=== PATIENT | male | born 1985 | race Caucasian/White ===

== ENCOUNTER 2018-03-22 09:23 | Inpatient (IN) | payer OTHER, SELFPAY ==
[2018-03-22 09:43] LABS: #Basophils 0.1 thou/uL (0.0-0.2); #Eosinphils 0.1 thou/uL (0.0-0.7); #Lymphocytes 1.5 thou/uL (1.20-3.40); #Monocytes 0.6 thou/uL (0.11-0.59); #Neutrophils 7.4 thou/uL (1.40-6.50); %Basophils 0.8 % (0.0-1.0); %Eosinophils 1.1 % (0.0-10.0); %Lymphocytes 15.8 % (21.0-51.0); %Monocytes 6.4 % (0.0-10.0); %Neutrophils 75.9 % (42.0-75.0); Hemoglobin 16.4 g/dL (14.0-18.0); Mean Corpuscular HGB CONC 33.8 g/dL (32.0-36.0); Mean Corpuscular Hemoglobin 31.9 pg (27.0-31.0); Mean Corpuscular Volume 94.6 fL (78.0-98.0); Mean Platelet Volume 8.3 fL (7.4-10.4); Platelet Count 257 thou/uL (130-400); RBC Distribution Width 10.9 % (11.5-14.5); Red Blood Cell (RBC) Count 5.13 mill/uL (4.70-6.10); White Blood Cell (WBC) Count 9.8 thou/uL (4.8-10.8)
[2018-03-22] MEDS ORDERED: Adacel (T-DAP) 0.5 ML VIAL ONE (09:44)
[2018-03-22] MEDS ORDERED: Fentanyl 100 MCG/2 ML VIAL ONE ×7 (09:44→18:22)
[2018-03-22 09:49] LABS: PTT 28.7 SEC (22.9-36.1); Prothrombin Time 12.7 SEC (12.0-14.7)
[2018-03-22] MEDS ORDERED: PROPOFOL 20 ML ONE (09:56)
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
[2018-03-22 10:00] LABS: ALT (SGPT) 82 U/L (8-55); AST (SGOT) 42 U/L (5-34); Albumin 4.4 g/dL (3.5-5.0); Alkaline Phosphatase 68 U/L (40-150); Anion Gap 14 mmol/L (10-20); BUN (Urea Nitrogen) 11 mg/dL (8.9-20.6); Bilirubin, Total 0.7 mg/dL (0.2-1.2); Calc. Creatinine Clearance 0 mL/min (70-130); Calcium 9.6 mg/dL (7.8-10.44); Carbon Dioxide 24 mmol/L (22-29); Chloride 106 mmol/L (98-107); Estimated GFR-MDRD 79; Glucose 125 mg/dL (70-105); Protein, Total 7.4 g/dL (6.0-8.3); Sodium 139 mmol/L (136-145)
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
[2018-03-22] MEDS ORDERED: Ondansetron HCl/PF 4 MG/2 ML Vial ONE (10:40)
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
[2018-03-22] MEDS ORDERED: HYDROmorphone 0.5 MG/0.5 ML SYRINGE ONE (13:10)
[2018-03-22] MEDS ORDERED: ISOVUE-370 76%-LOCM 1 ML ONE (13:33)
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
[2018-03-22] MEDS ORDERED: Midazolam HCl 2 mg/2 ml Vial ONE (15:24)
[2018-03-22] MEDS ORDERED: CEFAZOLIN/Water 2 GM/20 ML SYRINGE ONE (15:42)
[2018-03-22] MEDS ORDERED: Meperidine HCl/PF 25 MG/ML VIAL ONE (19:10)
[2018-03-22] MEDS ORDERED: Ondansetron HCl/PF 4 MG/2 ML Vial IVP PRN ×3 (19:31→20:02)
[2018-03-22] MEDS ORDERED: Promethazine HCl 25 MG/ML VIAL IM/IV PRN (19:31)
[2018-03-22] MEDS ORDERED: Ketorolac Tromethamine 30 MG/ML VIAL IM/IV PRN (19:31)
[2018-03-22] MEDS ORDERED: HYDROmorphone 2 MG/ML VIAL SLOW IVP PRN (19:31)
[2018-03-22] MEDS ORDERED: Non-Formulary Medication 1 EACH PO PRN (19:31)
[2018-03-22] MEDS ORDERED: Meperidine HCl/PF 25 MG/ML VIAL IV PRN (19:31)
--- NOTE | 2018-03-22 19:58 | RAD ---
THREE INTRAOPERATIVE IMAGES OF THE RIGHT HIP 03/22/18 HISTORY: Right hip surgery. FINDINGS: Previously noted fracture, dislocation of the right hip has been reduced and treated with three screw s overlying the femoral head. IMPRESSION: ORIF as above. POS: [facility]
[2018-03-22] MEDS ORDERED: Communication Order-Pharmacy FS SCH (20:02)
[2018-03-22] MEDS ORDERED: Zolpidem Tartrate 5 MG TAB PO PRN (20:02)
[2018-03-22] MEDS ORDERED: Dextrose 5% in Water 1,000 ML IV PRN (20:02)
[2018-03-22] MEDS ORDERED: Ondansetron ODT 4 MG TAB PO PRN (20:02)
[2018-03-22] MEDS ORDERED: Naloxone HCl 0.4 mg/ml Vial IV PRN (20:02)
[2018-03-22] MEDS ORDERED: Dextrose 50% Abboject 50 ML SYRINGE SLOW IVP PRN (20:02)
[2018-03-22] MEDS ORDERED: diphenhydrAMINE 50 MG/ML VIAL IVP PRN (20:02)
[2018-03-22] MEDS ORDERED: HYDROmorphone 10 mg/100 ml CADD IVPB PRN (20:02)
[2018-03-22] MEDS ORDERED: Promethazine HCl 25 MG/ML VIAL IM PRN (20:02)
[2018-03-22] MEDS ORDERED: diphenhydrAMINE 50 MG/ML VIAL IM PRN (20:02)
[2018-03-22] MEDS ORDERED: diphenhydrAMINE 25 MG CAP PO PRN (20:02)
[2018-03-22] MEDS ORDERED: cefTRIAXone\\ROCEPHIN 1 GM in Sodium Chloride 0.9% 100 ML IVPB SCH (21:00)
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
[2018-03-22] MEDS: Ketorolac Tromethamine 30 MG/ML VIAL IVP SCH (22:56)
[2018-03-22] MEDS: Sodium Chloride 0.9% 1,000 ML IV SCH (22:57)
[2018-03-22] MEDS: Famotidine 20 MG TAB PO SCH (22:57)
[2018-03-22] MEDS: Doxycycline 100 MG CAP PO SCH (22:57)
[2018-03-23 01:30] VITALS: BMI 32.5
[2018-03-23] MEDS: Ketorolac Tromethamine 30 MG/ML VIAL IVP SCH ×2 (03:14→09:29)
[2018-03-23 05:20] LABS: #Lymphocytes 1.7 thou/uL (1.20-3.40); #Monocytes 1.9 thou/uL (0.11-0.59); #Neutrophils 11.6 thou/uL (1.40-6.50); %Basophils 0.3 % (0.0-1.0); %Eosinophils 0.2 % (0.0-10.0); %Lymphocytes 10.8 % (21.0-51.0); %Monocytes 12.5 % (0.0-10.0); %Neutrophils 76.3 % (42.0-75.0); Hemoglobin 13.2 g/dL (14.0-18.0); Mean Corpuscular HGB CONC 33.8 g/dL (32.0-36.0); Mean Corpuscular Hemoglobin 31.7 pg (27.0-31.0); Mean Corpuscular Volume 93.8 fL (78.0-98.0); Mean Platelet Volume 8.3 fL (7.4-10.4); Platelet Count 255 thou/uL (130-400); RBC Distribution Width 10.9 % (11.5-14.5); Red Blood Cell (RBC) Count 4.15 mill/uL (4.70-6.10); White Blood Cell (WBC) Count 15.3 thou/uL (4.8-10.8)
[2018-03-23 05:26] LABS: Anion Gap 13 mmol/L (10-20); BUN (Urea Nitrogen) 7 mg/dL (8.9-20.6); Calc. Creatinine Clearance 176 mL/min (70-130); Calcium 8.2 mg/dL (7.8-10.44); Carbon Dioxide 24 mmol/L (22-29); Chloride 104 mmol/L (98-107); Estimated GFR-MDRD Greater than 90; Glucose 140 mg/dL (70-105); Potassium 3.7 mmol/L (3.5-5.1); Sodium 137 mmol/L (136-145)
[2018-03-23] MEDS: Sodium Chloride 0.9% 1,000 ML IV SCH ×2 (05:40→15:00)
[2018-03-23] MEDS: Doxycycline 100 MG CAP PO SCH ×2 (09:29→21:18)
[2018-03-23] MEDS: Famotidine 20 MG TAB PO SCH ×2 (09:29→21:43)
[2018-03-23 11:48] LABS: Bilirubin Negative (Negative); Blood, Urine Negative (Negative); Clarity CLEAR (Clear); Glucose, Urine (Dipstick) Negative (Negative); Leukocyte Trace (Negative); Nitrite Negative (Negative); Protein, Urine (Dipstick) Negative (Neg-Trace); Urobilinogen 0.2 mg/dL (0.2-1.0); pH, Urine 6.5 (5.0-9.0)
[2018-03-23 11:53] LABS: Bacteria/HPF None Seen HPF (None Seen); Hyaline Casts/LPF 0-3 HYALINE CAST LPF (0-3 Hyaline); Pathc Cast-AUWi Flag 0.29 (0-2.49); RBC/HPF 0-3 HPF (0-3); Squamous Epithelial 0-3 HPF (0-3)
[2018-03-23 12:12] LABS: Renal Epithelial None Seen HPF (0-3); Transitional Epithelial NONE SEEN HPF (0-3)
[2018-03-23] MEDS ORDERED: PROPOFOL 200 MG/20 ML VIAL ONE (13:27)
[2018-03-23] MEDS ORDERED: Ketorolac Tromethamine 30 MG/ML VIAL ONE (13:27)
[2018-03-23] MEDS ORDERED: Dexamethasone 20 MG/5 ML VIAL ONE (13:27)
[2018-03-23] MEDS ORDERED: Glycopyrrolate 0.2 MG/ML 5 ML SYRINGE ONE (13:27)
[2018-03-23] MEDS ORDERED: Lidocaine 1% PF 5 ML VIAL ONE (13:27)
[2018-03-23] MEDS ORDERED: Ondansetron HCl/PF 4 MG/2 ML Vial ONE (13:27)
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
[2018-03-23] MEDS: Ibuprofen 800 MG TAB PO SCH (16:10)
[2018-03-23] MEDS: Acetaminophen 500 MG TAB PO SCH ×2 (16:11→21:18)
[2018-03-23] MEDS: traMADol HCl 50 MG TAB PO PRN ×2 (18:47→21:19)
[2018-03-24] MEDS: Ibuprofen 800 MG TAB PO SCH ×3 (00:45→13:59)
[2018-03-24] MEDS: traMADol HCl 50 MG TAB PO PRN ×3 (03:21→21:12)
[2018-03-24] MEDS: Acetaminophen 500 MG TAB PO SCH ×4 (03:22→21:12)
[2018-03-24] MEDS: Doxycycline 100 MG CAP PO SCH ×2 (09:41→21:09)
[2018-03-24] MEDS: Famotidine 20 MG TAB PO SCH ×2 (09:42→21:09)
[2018-03-24] MEDS: Aspirin 81 mg Enteric Coated Tablet PO SCH ×2 (09:53→21:09)
[2018-03-24] MEDS: Senokot S 8.6-50 MG TAB PO SCH ×2 (09:53→21:09)
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
[2018-03-24] MEDS ORDERED: Polyethylene Glycol 3350 17 GM Packet PO SCH (16:19)
[2018-03-24] MEDS: Cyclobenzaprine 10 MG TAB PO PRN (18:02)
[2018-03-25] MEDS: Ibuprofen 800 MG TAB PO SCH ×4 (00:36→23:41)
[2018-03-25] MEDS: Acetaminophen 500 MG TAB PO SCH ×4 (03:25→21:15)
[2018-03-25] MEDS: traMADol HCl 50 MG TAB PO PRN ×4 (05:32→21:24)
[2018-03-25 05:58] LABS: #Basophils 0.1 thou/uL (0.0-0.2); #Eosinphils 0.2 thou/uL (0.0-0.7); #Lymphocytes 1.8 thou/uL (1.20-3.40); #Monocytes 0.8 thou/uL (0.11-0.59); #Neutrophils 6.3 thou/uL (1.40-6.50); %Basophils 0.6 % (0.0-1.0); %Eosinophils 2.2 % (0.0-10.0); %Lymphocytes 19.3 % (21.0-51.0); %Monocytes 9.1 % (0.0-10.0); %Neutrophils 68.8 % (42.0-75.0); Hemoglobin 11.1 g/dL (14.0-18.0); Mean Corpuscular HGB CONC 32.1 g/dL (32.0-36.0); Mean Corpuscular Volume 96.5 fL (78.0-98.0); Mean Platelet Volume 8.5 fL (7.4-10.4); Platelet Count 198 thou/uL (130-400); RBC Distribution Width 10.9 % (11.5-14.5); Red Blood Cell (RBC) Count 3.57 mill/uL (4.70-6.10); White Blood Cell (WBC) Count 9.1 thou/uL (4.8-10.8)
[2018-03-25] MEDS: Famotidine 20 MG TAB PO SCH ×2 (08:46→21:15)
[2018-03-25] MEDS: Doxycycline 100 MG CAP PO SCH ×2 (08:46→21:15)
[2018-03-25] MEDS: Polyethylene Glycol 3350 17 GM Packet PO SCH (08:46)
[2018-03-25] MEDS: Aspirin 81 mg Enteric Coated Tablet PO SCH ×2 (08:46→21:15)
[2018-03-25] MEDS: Senokot S 8.6-50 MG TAB PO SCH ×2 (08:47→21:15)
[2018-03-25] MEDS ORDERED: Polyethylene Glycol 3350 17 GM Packet PO SCH (09:00)
[2018-03-25] MEDS ORDERED: Bisacodyl 10 MG SUPP PR SCH ×2 (09:15→14:00)
[2018-03-25] MEDS: Cyclobenzaprine 10 MG TAB PO PRN (12:23)
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
[2018-03-26] MEDS: Acetaminophen 500 MG TAB PO SCH ×2 (04:14→08:42)
[2018-03-26] MEDS: traMADol HCl 50 MG TAB PO PRN ×2 (04:16→10:06)
[2018-03-26] MEDS ORDERED: Bisacodyl 10 MG SUPP PR PRN (07:15)
[2018-03-26 07:58] VITALS: BP 111/71; TEMP 98.4
[2018-03-26] MEDS: Ibuprofen 800 MG TAB PO SCH (08:42)
[2018-03-26] MEDS: Polyethylene Glycol 3350 17 GM Packet PO SCH (08:43)
[2018-03-26] MEDS: Doxycycline 100 MG CAP PO SCH (08:43)
[2018-03-26] MEDS: Famotidine 20 MG TAB PO SCH (08:43)
[2018-03-26] MEDS: Aspirin 81 mg Enteric Coated Tablet PO SCH (08:43)
[2018-03-26] MEDS: Senokot S 8.6-50 MG TAB PO SCH (08:43)
[2018-03-26] MEDS ORDERED: Bisacodyl 10 MG SUPP PR SCH (09:00)
[2018-03-26] MEDS: Cyclobenzaprine 10 MG TAB PO PRN (10:06)
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
== END 2018-03-26 14:20 | disposition home or self-care (01) | DRG 481 ==
LOC: ERS 09:23 → SURG B 19:18
PROVIDERS: ADMIT Surgery; ATTEND Surgery
PROC: 0QS604Z Reposition Right Upper Femur with Internal Fixation Device, Open Approach (ICD-10-PCS; principal; 2018-03-22)
PROC: 0SS904Z Reposition Right Hip Joint with Internal Fixation Device, Open Approach (ICD-10-PCS; 2018-03-22)
DX: S72.051A Unspecified fracture of head of right femur, initial encounter for closed fracture (principal); S06.0X9A Concussion with loss of consciousness of unspecified duration, initial encounter; Y92.9 Unspecified place or not applicable; F17.210 Nicotine dependence, cigarettes, uncomplicated; V89.2XXA Person injured in unspecified motor-vehicle accident, traffic, initial encounter; Y93.9 Activity, unspecified; R40.2412 Glasgow coma scale score 13-15, at arrival to emergency department
CPT/HCPCS: 36415; 36416; 71045; 72170; 74177; 76001; 80048; 80053; 81001; 85025; 85610; 85730; 86850; 86900; 86901; 87086; 90471; 90715; 96361; 96374; 96375; 99152; C1713; C1769; G0390; G8978-GP-CL; G8979-GP-CI; G8987-GO-CL; G8988-GO-CI; J0696; J1100; J1170; J1885; J2001; J2175; J2250; J2405; J2704; J3010; J7050; Q0162

== ENCOUNTER 2018-05-31 10:50 | Emergency (ER) | payer SELFPAY ==
--- NOTE | 2018-05-31 11:51 | RAD ---
2 VIEWS RIGHT HIP: Date: 05/31/18 COMPARISON: 03/22/18. HISTORY: Right hip pain. Patient had hip surgery on 03/22/18. Patient recently felt pain in the right hip and leg. FINDINGS: Two views of the right hip show three screws in the femoral head. This spans the previously seen frac ture. No dislocation is seen. No perihardware lucency is identified. IMPRESSION: Postoperative changes of the right femoral head without evidence of acute osseous abnormality. POS: [facility]
[2018-05-31] MEDS ORDERED: Ketorolac Tromethamine 60 MG/2 ML VIAL ONE (12:09)
== END 2018-05-31 12:21 | disposition home or self-care (01) ==
LOC: ERS 10:50
DX: M25.551 Pain in right hip (principal)
CPT/HCPCS: 96372; J1885

== ENCOUNTER 2018-06-08 10:20 | Inpatient (IN) | payer SELFPAY ==
--- NOTE | 2018-06-08 12:10 | RAD ---
2 VIEWS RIGHT HIP: Date: 06/08/18 COMPARISON: 05/31/18. HISTORY: Hip pain. FINDINGS: Three screws overlie the femoral head on the right, as seen on the prior examination. There is a new fracture at the base of the femoral head with impaction. The distal fracture fragment demonstrates mi ld lateral displacement and mild proximal displacement. Orthopedic consultation advised. IMPRESSION: New impacted and displaced basicervical fracture of the right femoral neck. POS: [facility]
[2018-06-08] MEDS ORDERED: Morphine 4 MG/ML VIAL ONE (12:28)
[2018-06-08] MEDS ORDERED: Ondansetron PF 4 MG/2 ML Vial ONE (12:28)
[2018-06-08 12:47] LABS: #Basophils 0.1 thou/uL (0.0-0.2); #Eosinphils 0.1 thou/uL (0.0-0.7); #Lymphocytes 1.8 thou/uL (1.20-3.40); #Monocytes 0.7 thou/uL (0.11-0.59); %Basophils 0.8 % (0.0-1.0); %Eosinophils 0.5 % (0.0-10.0); %Lymphocytes 18.6 % (21.0-51.0); %Monocytes 6.8 % (0.0-10.0); %Neutrophils 73.3 % (42.0-75.0); Hemoglobin 15.4 g/dL (14.0-18.0); Mean Corpuscular HGB CONC 33.6 g/dL (32.0-36.0); Mean Corpuscular Hemoglobin 31.1 pg (27.0-31.0); Mean Corpuscular Volume 92.7 fL (78.0-98.0); Mean Platelet Volume 7.5 fL (7.4-10.4); Platelet Count 369 thou/uL (130-400); RBC Distribution Width 11.1 % (11.5-14.5); Red Blood Cell (RBC) Count 4.94 mill/uL (4.70-6.10); White Blood Cell (WBC) Count 9.5 thou/uL (4.8-10.8)
[2018-06-08 13:07] LABS: ALT (SGPT) 31 U/L (8-55); AST (SGOT) 22 U/L (5-34); Albumin 4.9 g/dL (3.5-5.0); Alkaline Phosphatase 104 U/L (40-150); Anion Gap 14 mmol/L (10-20); BUN (Urea Nitrogen) 5 mg/dL (8.9-20.6); Bilirubin, Total 0.6 mg/dL (0.2-1.2); Calc. Creatinine Clearance 0 mL/min (70-130); Calcium 10.4 mg/dL (7.8-10.44); Carbon Dioxide 26 mmol/L (22-29); Chloride 102 mmol/L (98-107); Estimated GFR-MDRD Greater than 90; Globulin 3.9 g/dL (2.4-3.5); Glucose 89 mg/dL (70-105); Potassium 3.7 mmol/L (3.5-5.1); Protein, Total 8.8 g/dL (6.0-8.3); Sodium 138 mmol/L (136-145)
[2018-06-08] MEDS ORDERED: Ondansetron PF 4 MG/2 ML Vial IVP PRN (14:52)
[2018-06-08] MEDS ORDERED: Ondansetron ODT 4 MG TAB PO PRN (14:52)
[2018-06-08] MEDS: Sodium Chloride 0.9% 1,000 ML IV SCH ×2 (16:31→21:46)
[2018-06-08] MEDS ORDERED: Acetaminophen 1,000 MG in Premix Bag 1 BAG IVPB PRN (17:23)
[2018-06-08] MEDS ORDERED: Morphine 4 MG/ML VIAL SLOW IVP PRN ×2 (17:24)
[2018-06-08] MEDS ORDERED: traMADol HCl 50 MG TAB PO PRN (18:03)
[2018-06-08] MEDS: traMADol HCl 50 MG TAB PO PRN (19:24)
--- NOTE | 2018-06-08 20:00 | HP ---
HISTORY OF PRESENT ILLNESS: Mr. Rodrigues is a 32-year-old male, has 2 months ago , he had a posterior fracture dislocation with a Lorenzo IV femoral head fracture with acetabular fracture. The patient states he subsequently underwent an open reduction and internal fixation through anterior approach by my partner, Dr. Noonan, at that day. The patient presents back now with increasing pain for a week. He was seen last Saturday in the ER with films that were negative per report, that showed the previous fracture. The patient has increasing pain. He has been seen in followup, but his pain has been acutely increasing for the last week. The patient is seen now, and is noted to have a femoral neck fracture. PAST MEDICAL HISTORY: None. PAST SURGICAL HISTORY: ORIF, Lorenzo fracture. MEDICATIONS: None. ALLERGIES: NO KNOWN DRUG ALLERGIES. SOCIAL HISTORY: History of alcoholism. No tobacco, drinking, or smoking in the last 7 months. Significant other is at bedside. REVIEW OF SYSTEMS: Noncontributory. PHYSICAL EXAMINATION: VITAL SIGNS: 148/76, 79, 18, 97.9, 6/10 pain, and 97% on room air. GENERAL: Alert and oriented, in no acute distress, resting comfortably in bed. HEENT: Normocephalic and atraumatic. Extraocular muscles intact. HEART: Regular rate. LUNGS: Symmetric chest rise. ABDOMEN: Soft and nontender. EXTREMITIES: The patient's right leg is externally rotated. He has pain with internal and external rotation. Brisk cap refill. Neurovascular intact in L4 through S1 distributions. DIAGNOSTIC DATA: The patient's radiographs show a right femoral neck fracture with Lorenzo screws in AP from his previous Lorenzo fracture. IMPRESSION: Right posterior femoral neck fracture dislocation, status post open reduction and internal fixation for Lorenzo IV now with completion of the femoral neck fracture secondary to either initial injury versus blood supply with stress fracture. PLAN: I had a long discussion with the patient as well as the patient's aunt about the complexity of this issue. I discussed that he apparently gone onto fracture his femoral neck, which is potentially either secondary to the initial injury or secondary to the blood supply issues and a stress fracture from most recent ambulating on it. I discussed with him that operative fixation could be performed versus a total hip. I discussed that there is a possibility of avascular necrosis and arthritis postop leading to a total hip in the future if fixed. I discussed that this is a difficult problem. I discussed that a total hip could only last for the patient 10 years and may have to have the hip revised. Discussed it may also last longer than that. We would use bearing surfaces appropriately, but the concern is his age and a total hip, he may require long-term treatment. I discussed the risk and benefits of an ORIF. I discussed that given he currently has a previous ORIF that we have to do another open approach and reduce the screws across the femoral neck. I discussed in that setting that the screws already in place from his Lorenzo fracture may affect the ability to purchase his femoral neck with our cannulated screw fixation. I discussed that this is a very complex issue, which has no perfect answer; I discussed that consisting the total hip, but I discussed that if the femoral neck would heal, this would be the best outcome. As far as longevity, it may give him several more years before proceeding to his total hip, but I felt alternatively, he probably will require a total hip in the future. The patient understands this is a difficult problem. We will plan to be make him n.p.o. at midnight for a total hip arthroplasty versus ORIF. I discussed the patient's care with Dr. Noonan, who will decide with the patient which procedure tomorrow morning. The patient will proceed tomorrow. Job ID: [id number] [facility]
[2018-06-09] MEDS ORDERED: Neomycin-Polymyxin 1 ML AMP ONE (06:57)
[2018-06-09] MEDS ORDERED: CEFAZOLIN 2 GM/50 ML BAG ONE (07:08)
[2018-06-09] MEDS ORDERED: Fentanyl 250 MCG/5 ML VIAL ONE (07:11)
[2018-06-09] MEDS ORDERED: Ondansetron HCl/PF 4 MG/2 ML Vial IVP PRN (08:29)
[2018-06-09] MEDS ORDERED: Promethazine HCl 25 MG/ML VIAL IM PRN (08:29)
[2018-06-09] MEDS ORDERED: Promethazine HCl 25 MG/ML VIAL SLOW IVP PRN (08:29)
[2018-06-09] MEDS ORDERED: Fentanyl 100 MCG/2 ML VIAL ONE ×4 (09:13→10:26)
[2018-06-09] MEDS ORDERED: Meperidine HCl/PF 25 MG/ML VIAL ONE (10:00)
[2018-06-09] MEDS ORDERED: CEFAZOLIN/Water 2 GM/20 ML SYRINGE SLOW IVP SCH (10:00)
[2018-06-09] MEDS ORDERED: Ondansetron PF 4 MG/2 ML Vial IVP PRN (10:06)
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
--- NOTE | 2018-06-09 10:50 | RAD ---
AP PELVIS AND RIGHT HIP 1 VIEW: Date: 06/09/18 HISTORY: Total hip arthroplasty. FINDINGS/IMPRESSION: There are recent postop changes of total right hip arthroplasty in good position and alignment. POS: [facility]
[2018-06-09] MEDS: Ketorolac Tromethamine 30 MG/ML VIAL IVP PRN (11:21)
[2018-06-09] MEDS ORDERED: diphenhydrAMINE 50 MG/ML VIAL IVP PRN (12:26)
[2018-06-09] MEDS ORDERED: diphenhydrAMINE 25 MG CAP PO PRN (12:26)
[2018-06-09] MEDS: traMADol HCl 50 MG TAB PO PRN ×2 (13:25→20:50)
[2018-06-09] MEDS: CEFAZOLIN 2 GM/50 ML-DEXTROSE 2 GM in Premix Bag 1 BAG IVPB SCH (16:26)
[2018-06-09] MEDS ORDERED: Dexamethasone 20 MG/5 ML VIAL ONE (16:28)
[2018-06-09] MEDS ORDERED: Glycopyrrolate 0.2 MG/ML 5 ML SYRINGE ONE (16:28)
[2018-06-09] MEDS ORDERED: PROPOFOL 200 MG/20 ML VIAL ONE (16:28)
[2018-06-09] MEDS ORDERED: Ondansetron PF 4 MG/2 ML Vial ONE (16:28)
[2018-06-09] MEDS ORDERED: Lidocaine 1% PF 5 ML VIAL ONE (16:28)
[2018-06-10] MEDS: CEFAZOLIN 2 GM/50 ML-DEXTROSE 2 GM in Premix Bag 1 BAG IVPB SCH (01:00)
[2018-06-10] MEDS: traMADol HCl 50 MG TAB PO PRN ×5 (01:25→21:26)
[2018-06-11] MEDS: Ketorolac Tromethamine 30 MG/ML VIAL IVP PRN (01:48)
[2018-06-11] MEDS: HYDROcodone/Acetaminophen 5/325 mg Tablet PO PRN ×4 (01:49→20:18)
[2018-06-11 09:58] LABS: Hemoglobin 11.1 g/dL (14.0-18.0); Mean Corpuscular HGB CONC 33.6 g/dL (32.0-36.0); Mean Corpuscular Hemoglobin 31.3 pg (27.0-31.0); Mean Corpuscular Volume 93.3 fL (78.0-98.0); Mean Platelet Volume 7.9 fL (7.4-10.4); Platelet Count 307 thou/uL (130-400); RBC Distribution Width 10.8 % (11.5-14.5); Red Blood Cell (RBC) Count 3.54 mill/uL (4.70-6.10); White Blood Cell (WBC) Count 9.4 thou/uL (4.8-10.8)
[2018-06-11] MEDS: traMADol HCl 50 MG TAB PO PRN (11:34)
[2018-06-12] MEDS: traMADol HCl 50 MG TAB PO PRN
[2018-06-12] MEDS: Ketorolac Tromethamine 30 MG/ML VIAL IVP PRN (02:43)
[2018-06-12 08:05] VITALS: BP 122/72; TEMP 97.8
[2018-06-12] MEDS: HYDROcodone/Acetaminophen 5/325 mg Tablet PO PRN (08:13)
== END 2018-06-12 11:32 | disposition home or self-care (01) | DRG 470 ==
LOC: ERS 10:20 → SURG A 14:16
PROVIDERS: ADMIT Orthopaedic Surgery; ATTEND Orthopaedic Surgery
PROC: 0SR904A Replacement of Right Hip Joint with Ceramic on Polyethylene Synthetic Substitute, Uncemented, Open Approach (ICD-10-PCS; principal; 2018-06-09)
DX: S72.001A Fracture of unspecified part of neck of right femur, initial encounter for closed fracture (principal); X58.XXXA Exposure to other specified factors, initial encounter; Y92.9 Unspecified place or not applicable
CPT/HCPCS: 36415; 72170; 80053; 85025; 85027; 93005; 96361; 96374; 96375; G8978-GP-CK; G8979-GP-CI; J0131; J1100; J1885; J2001; J2175; J2270; J2405; J2704; J2710; J3010

== ENCOUNTER 2018-09-21 18:38 | Emergency (ER) | payer SELFPAY ==
[2018-09-21 20:36] LABS: #Basophils 0.2 thou/uL (0.0-0.2); #Lymphocytes 0.3 thou/uL (1.20-3.40); #Monocytes 0.5 thou/uL (0.11-0.59); #Neutrophils 10.4 thou/uL (1.40-6.50); %Basophils 1.4 % (0.0-1.0); %Eosinophils 0.2 % (0.0-10.0); %Lymphocytes 2.9 % (21.0-51.0); %Monocytes 4.5 % (0.0-10.0); %Neutrophils 91.1 % (42.0-75.0); Hemoglobin 16.3 g/dL (14.0-18.0); Mean Corpuscular HGB CONC 33.3 g/dL (32.0-36.0); Mean Corpuscular Hemoglobin 30.3 pg (27.0-31.0); Mean Corpuscular Volume 90.9 fL (78.0-98.0); Mean Platelet Volume 9.1 fL (7.4-10.4); Platelet Count 239 thou/uL (130-400); RBC Distribution Width 11.9 % (11.5-14.5); Red Blood Cell (RBC) Count 5.37 mill/uL (4.70-6.10); White Blood Cell (WBC) Count 11.4 thou/uL (4.8-10.8)
[2018-09-21 20:59] LABS: ALT (SGPT) 42 U/L (8-55); AST (SGOT) 25 U/L (5-34); Albumin 4.4 g/dL (3.5-5.0); Alkaline Phosphatase 78 U/L (40-150); Anion Gap 15 mmol/L (10-20); BUN (Urea Nitrogen) 11 mg/dL (8.9-20.6); Bilirubin, Total 1.2 mg/dL (0.2-1.2); Calc. Creatinine Clearance 0 mL/min (70-130); Calcium 9.4 mg/dL (7.8-10.44); Carbon Dioxide 20 mmol/L (22-29); Chloride 104 mmol/L (98-107); Estimated GFR-MDRD 89; Globulin 3.6 g/dL (2.4-3.5); Glucose 112 mg/dL (70-105); Potassium 3.6 mmol/L (3.5-5.1); Sodium 135 mmol/L (136-145)
[2018-09-21] MEDS ORDERED: Pantoprazole 40 MG VIAL ONE (22:03)
[2018-09-21] MEDS ORDERED: Ondansetron PF 4 MG/2 ML Vial ONE (22:03)
[2018-09-21 23:20] LABS: Bilirubin Small (Negative); Blood, Urine Negative (Negative); Clarity CLEAR (Clear); Glucose, Urine (Dipstick) Negative (Negative); Leukocyte Trace (Negative); Nitrite Negative (Negative); Protein, Urine (Dipstick) 30 mg/dL (Neg-Trace); Specific Gravity, Urine 1.031 (1.002-1.036); Urobilinogen 0.2 mg/dL (0.2-1.0); pH, Urine 5.5 (5.0-9.0)
[2018-09-21 23:21] LABS: Bacteria/HPF None Seen HPF (None Seen); RBC/HPF 0-3 HPF (0-3); Squamous Epithelial 0-3 HPF (0-3); WBC/HPF 0-3 HPF (0-3)
[2018-09-21 23:32] LABS: Hyaline Casts/LPF 4-6 HYALINE CAST LPF (0-3 Hyaline)
[2018-09-21] MEDS ORDERED: Ibuprofen 200 MG TAB ONE (23:35)
--- NOTE | 2018-09-22 07:40 | CT ---
ABDOMEN AND PELVIS CT WITH CONTRAST: COMPARISON: CT images 03/22/2018. INDICATION: Abdominal pain, vomiting. FINDINGS: Imaged lung bases are clear. Punctate, nonobstructing left nephrolithiasis is present. Otherwise, s olid abdominal organs are grossly unremarkable. The bowel is incompletely evaluated without enteric contrast. There is diffuse fluid content of the colon which may be on the basis of an infectious/inf lammatory colitis. No mechanical bowel obstruction is confirmed within limitations. No evidence of free air. No ascites. There is streak artifact from right hip hardware that limits visualization of the pelvis. Abdominal aorta is normal in caliber. IMPRESSION: 1. Diffuse fluid content of the colon which can be seen in the setting of infectious or inflammatory colitis. There is no evidence, with limitations, to indicate mechanical obstruction. There are ect atic fluid-filled loops of small bowel that could relate to an associated ileus. 2. Additional details are described above. POS: [facility]
[2018-09-22] MEDS ORDERED: ISOVUE-370 76%-LOCM 1 ML ONE (14:40)
== END 2018-09-22 01:16 | disposition home or self-care (01) ==
LOC: ERS 18:38
DX: K52.9 Noninfective gastroenteritis and colitis, unspecified (principal); F17.290 Nicotine dependence, other tobacco product, uncomplicated
CPT/HCPCS: 36415; 74177; 80053; 81003; 81015; 82274; 83630; 83690; 85025; 87045; 87046; 87086; 87324; 87449; 87804; 87899; 94760; 96361; 96374; 96375; C9113; J2405; Q9966

== ENCOUNTER 2021-06-17 20:33 | Emergency (ER) | payer OTHER, BC | END 2021-06-17 23:43 | disposition home or self-care (01) | LOC: ERS 20:33 | DX: L03.115 Cellulitis of right lower limb (principal); F17.210 Nicotine dependence, cigarettes, uncomplicated | CPT/HCPCS: 99283 ==

== ENCOUNTER 2023-04-27 19:01 | Emergency (ER) | payer BC, SELFPAY | END 2023-04-27 20:44 | disposition home or self-care (01) | LOC: ERS 19:01 | DX: L03.319 Cellulitis of trunk, unspecified (principal); F17.210 Nicotine dependence, cigarettes, uncomplicated | CPT/HCPCS: 99283 ==

== ENCOUNTER 2023-06-13 23:51 | Emergency (ER) | payer SELFPAY ==
[2023-06-14] MEDS ORDERED: Lidocaine 1% w/Epinephrine 1:100K 20 ML VIAL ONE (00:13)
== END 2023-06-14 00:51 | disposition home or self-care (01) ==
LOC: ERS 23:51
DX: L05.01 Pilonidal cyst with abscess (principal); F17.210 Nicotine dependence, cigarettes, uncomplicated
CPT/HCPCS: 10080

== ENCOUNTER 2024-07-03 15:02 | Emergency (ER) | payer SELFPAY ==
[2024-07-03 15:46] LABS: %Eosinophils 0.6 % (0.0-10.0); %Lymphocytes 12.3 % (21.0-51.0); %Neutrophils 80.3 % (42.0-75.0); Hematocrit 48.5 % (42.0-52.0); Hemoglobin 17.2 g/dL (14.0-18.0); Mean Corpuscular HGB CONC 35.5 g/dL (32.0-36.0); Mean Corpuscular Hemoglobin 33.9 pg (27.0-31.0); Mean Corpuscular Volume 95.5 fL (78.0-98.0); Mean Platelet Volume 10.9 fL (7.4-10.4); Platelet Count 206 10x3/uL (130-400); RBC Distribution Width 12.2 % (11.5-14.5); Red Blood Cell (RBC) Count 5.08 mill/uL (4.70-6.10)
[2024-07-03 15:56] LABS: ALT (SGPT) 157 U/L (8-55); AST (SGOT) 144 U/L (5-34); Albumin 3.9 g/dL (3.5-5.0); Alkaline Phosphatase 127 U/L (40-110); Anion Gap 14 mmol/L (10-20); BUN (Urea Nitrogen) 4 mg/dL (8.9-20.6); Bilirubin, Total 1.1 mg/dL (0.2-1.2); Calc. Creatinine Clearance 0 mL/min (70-130); Calcium 9.3 mg/dL (7.8-10.44); Carbon Dioxide 25 mmol/L (22-29); Chloride 102 mmol/L (98-107); Estimated GFR 114; Globulin 4.4 g/dL (2.4-3.5); Glucose 217 mg/dL (70-105); Potassium 3.8 mmol/L (3.5-5.1); Protein, Total 8.3 g/dL (6.0-8.3); Sodium 137 mmol/L (136-145)
[2024-07-03] MEDS ORDERED: Ondansetron PF 4 MG/2 ML Vial ONE (16:58)
[2024-07-03] MEDS ORDERED: Acetaminophen 325 MG TAB ONE (21:08)
[2024-07-03] MEDS ORDERED: Metoclopramide HCl 10 MG (2 mL) VIAL ONE (21:08)
== END 2024-07-03 18:35 | disposition home or self-care (01) ==
LOC: ERS 15:02
DX: R55 Syncope and collapse (principal); R74.01 Elevation of levels of liver transaminase levels; R19.7 Diarrhea, unspecified; F17.290 Nicotine dependence, other tobacco product, uncomplicated
CPT/HCPCS: 71045; 80053; 85025; 87428; 93005; 96365; 96375; J2405; J2765